=== PATIENT | female | born 1960 | race Caucasian/White ===

== ENCOUNTER 2022-08-05 15:43 | Inpatient (IN) ==
[2022-08-05] MEDS ORDERED: ONDANSETRON 4 MG/2 ML VIAL IV PRN (16:06)
[2022-08-05] MEDS ORDERED: MORPHINE 2 MG/1 ML SYRINGE IV PRN (16:06)
[2022-08-05] MEDS: PIPERACILLIN/TAZOBACTAM 3,375 MG in SODIUM CHLORIDE 0.9% 100 ML IV SCH (18:50)
[2022-08-05] MEDS: DEXTROSE 5% NACL 0.45% 1,000 ML IV SCH (19:54)
[2022-08-05] MEDS: ACETAMINOPHEN 325 MG TABLET PO PRN (20:30)
[2022-08-05] MEDS: ASCORBIC ACID 500 MG TABLET PO SCH (23:18)
[2022-08-05] MEDS: ROSUVASTATIN 10 MG TABLET PO SCH (23:18)
[2022-08-05] MEDS: WARFARIN 3 MG TABLET PO SCH (23:18)
[2022-08-05] MEDS: POTASSIUM CHLORIDE 10 MEQ TABLET PO SCH (23:18)
[2022-08-06] MEDS: PIPERACILLIN/TAZOBACTAM 3,375 MG in SODIUM CHLORIDE 0.9% 100 ML IV SCH ×3 (02:12→18:05)
[2022-08-06] MEDS: ASCORBIC ACID 500 MG TABLET PO SCH ×2 (11:15→21:00)
[2022-08-06] MEDS: POTASSIUM CHLORIDE 10 MEQ TABLET PO SCH ×2 (11:15→21:00)
[2022-08-06] MEDS: CHOLECALCIFEROL 1,000 UNIT TABLET PO SCH (11:15)
[2022-08-06] MEDS: PANTOPRAZOLE 40 MG TABLET PO SCH (11:15)
[2022-08-06] MEDS: VALSARTAN 80 MG TABLET PO SCH (13:17)
[2022-08-06] MEDS: DEXTROSE 5% NACL 0.45% 1,000 ML IV SCH ×2 (13:27→19:15)
[2022-08-06] MEDS: WARFARIN 3 MG TABLET PO SCH (18:05)
[2022-08-06] MEDS: ROSUVASTATIN 10 MG TABLET PO SCH (21:00)
[2022-08-07] MEDS: DEXTROSE 5% NACL 0.45% 1,000 ML IV SCH ×4 (00:30→17:45)
[2022-08-07] MEDS: PIPERACILLIN/TAZOBACTAM 3,375 MG in SODIUM CHLORIDE 0.9% 100 ML IV SCH (02:30)
[2022-08-07] MEDS: ACETAMINOPHEN 325 MG TABLET PO PRN ×2 (07:32→20:10)
[2022-08-07] MEDS: ASCORBIC ACID 500 MG TABLET PO SCH ×2 (09:46→20:10)
[2022-08-07] MEDS: CHOLECALCIFEROL 1,000 UNIT TABLET PO SCH (09:47)
[2022-08-07] MEDS: PANTOPRAZOLE 40 MG TABLET PO SCH (09:48)
[2022-08-07] MEDS: POTASSIUM CHLORIDE 10 MEQ TABLET PO SCH ×2 (09:48→20:10)
[2022-08-07] MEDS: VALSARTAN 80 MG TABLET PO SCH (09:49)
[2022-08-07] MEDS: ERTAPENEM 1,000 MG in SODIUM CHLORIDE 0.9% 100 ML IV SCH (10:54)
[2022-08-07] MEDS: WARFARIN 3 MG TABLET PO SCH (18:48)
[2022-08-07] MEDS: ROSUVASTATIN 10 MG TABLET PO SCH (20:11)
[2022-08-08] MEDS: DEXTROSE 5% NACL 0.45% 1,000 ML IV SCH ×2 (01:40→11:17)
[2022-08-08 06:04] LABS: Basophils # 0.1 10*3/uL (0.0-0.2); Basophils % 1.3 % (0.0-0.8); Eosinophils # 0.3 10*3/uL (0.0-0.87); Eosinophils % 4.6 % (0.00-10.9); Hematocrit 40.9 VOL% (35.7-47.0); Hemoglobin 13.3 GM/DL (12.0-16.0); Immature Granulocytes % 0.6 %; Immature Granulocytes Absolute 0.04 #; Lymphocytes % 27.9 % (21.3-54.2); Mean Corpuscular HGB Conc 32.5 GM/DL (32-36); Mean Platelet Volume 10.6 FL (9.6-12.0); Monocytes # 0.6 10*3/uL (0.11-0.8); Monocytes % 8.6 % (1.7-12.7); Platelet Count 280 T/CUMM (130-400); Red Cell Distribution Width 12.5 % (9.3-17.3); White Blood Count 7.1 T/CUMM (4-12)
[2022-08-08 06:11] LABS: INR 1.5; PT Patient Result 16.3 SECS (10.1-12.1)
[2022-08-08 06:24] LABS: Calcium 10.1 MG/DL (8.5-10.1); Osmolality,Calculated 280.3 MOS/KG (273-304)
[2022-08-08] MEDS: VALSARTAN 80 MG TABLET PO SCH (09:03)
[2022-08-08] MEDS: POTASSIUM CHLORIDE 10 MEQ TABLET PO SCH ×2 (09:03→21:15)
[2022-08-08] MEDS: PANTOPRAZOLE 40 MG TABLET PO SCH (09:04)
[2022-08-08] MEDS: ASCORBIC ACID 500 MG TABLET PO SCH ×2 (09:04→21:15)
[2022-08-08] MEDS: CHOLECALCIFEROL 1,000 UNIT TABLET PO SCH (09:04)
[2022-08-08] MEDS: ERTAPENEM 1,000 MG in SODIUM CHLORIDE 0.9% 100 ML IV SCH (09:27)
[2022-08-08] MEDS: WARFARIN 3 MG TABLET PO SCH (17:31)
[2022-08-08] MEDS: ROSUVASTATIN 10 MG TABLET PO SCH (21:15)
[2022-08-09 04:58] LABS: INR 1.6; PT Patient Result 17.3 SECS (10.1-12.1)
[2022-08-09] MEDS ORDERED: WARFARIN 10 MG TABLET PO ONE (08:00)
[2022-08-09] MEDS ORDERED: ERTAPENEM 1,000 MG in SODIUM CHLORIDE 0.9% 100 ML IV SCH (08:00)
[2022-08-09] MEDS: POTASSIUM CHLORIDE 10 MEQ TABLET PO SCH (08:03)
[2022-08-09] MEDS: ASCORBIC ACID 500 MG TABLET PO SCH (08:03)
[2022-08-09] MEDS: CHOLECALCIFEROL 1,000 UNIT TABLET PO SCH (08:03)
[2022-08-09] MEDS: VALSARTAN 80 MG TABLET PO SCH (08:03)
[2022-08-09] MEDS: PANTOPRAZOLE 40 MG TABLET PO SCH (08:04)
[2022-08-09 11:35] VITALS: BP 133/66
== END 2022-08-09 14:57 | disposition home or self-care (01) | DRG 392 ==
LOC: N.2W → N.3E 08-08 11:55
PROVIDERS: ADMIT Family Medicine; ATTEND Family Medicine